=== PATIENT | female | born 1960 | race American Indian/Alaskan Native ===

== ENCOUNTER 2022-02-14 09:08 | Emergency (ER) | payer MEDICARE ==
[2022-02-14] MEDS ORDERED: KETOROLAC 30 MG/1 ML INJ IM ONE (11:29)
[2022-02-14] MEDS ORDERED: ACETAMINOPHEN 500 MG TAB PO ONE (11:29)
--- NOTE | 2022-02-14 11:30 | Emergency Department Report ---
ED General Adult HPI - General Chief complaint: Back Pain/Injury Stated complaint: LOWER BACK/LT/RT LEG PAIN Time Seen by Provider: 02/14/22 11:16 Source: patient, RN notes reviewed Mode of arrival: Ambulatory Limitations: No Limitations - History of Present Illness Initial comments: The patient was evaluated in the emergency department for symptoms described in the history of present illness. He/she was evaluated in the context of the global COVID-19 pandemic, which necessitated consideration that the patient might be at risk for infection with the virus that causes COVID-19. Institutional protocols and algorithms that pertain to the evaluation of patients at risk for COVID-19 are in a state of rapid change based on information released by regulatory bodies including the CDC and federal and state organizations. These policies and algorithms were followed during the patient's care in the emergency department. Please note that these policies, procedures and recommendations changed on a rapid basis. This is a 41-year-old female with a body mass index of 41.3, and a past medical history of hypertension, presumed arthritis, known lumbar radiculopathy and who presents to the emergency room today with a complaint of persistent left paralumbar lower back pain, which radiates down the left posterior lower extremity. The pain is somewhat intense, and causes her to limp, and therefore, she is putting extra weight on her knees, and she complains of generalized knee aches. She was recently seen at [facility] , last week for similar symptoms, reportedly prescribed a muscle relaxant, which she is taking, without additional analgesics, without significant improvement in symptoms. Denies headache, neck pain, chest pain, abdominal pain, shortness of breath, vomiting, dysuria, focal extremity weakness, bladder or bowel retention incontinence and saddle anesthesia. Pain is sharp and lancinating, radiates down the left lower extremity, increases with range of motion, ambulation, decreases with rest and position. No additional injuries or complaints. -: week(s) Location: back, left, lower extremity Radiation: extremity Severity scale (0 -10): 8 Quality: other Consistency: other Improves with: other Worsens with: other Associated Symptoms: denies other symptoms - Related Data Previous Rx's Medication Instructions Recorded Last Taken Type Acetaminophen [Acetaminophen ER 650 mg PO Q6HR PRN #30 tab 02/14/22 Unknown Rx TAB] Ibuprofen [Motrin] 600 mg PO Q8H PRN #30 tablet 02/14/22 Unknown Rx Allergies Allergy/AdvReac Type Severity Reaction Status Date / Time No Known Allergies Allergy Unverified 02/14/22 09:13 ED Review of Systems ROS: Stated complaint: LOWER BACK/LT/RT LEG PAIN Other details as noted in HPI Comment: All other systems reviewed and negative Musculoskeletal: back pain, arthralgia, myalgia Neurological: paresthesias ED Past Medical Hx - Past Medical History Previous Medical History?: Yes Additional medical history: Lupus - Surgical History Past Surgical History?: Yes Hx Appendectomy: Yes - Medications Home Medications: Home Medications Medication Instructions Recorded Confirmed Last Taken Type Acetaminophen [Acetaminophen ER 650 mg PO Q6HR PRN #30 tab 02/14/22 Unknown Rx TAB] Ibuprofen [Motrin] 600 mg PO Q8H PRN #30 tablet 02/14/22 Unknown Rx ED Physical Exam - General Limitations: No Limitations General appearance: alert, in no apparent distress, obese - Head Head exam: Present: atraumatic, normocephalic - Eye Eye exam: Present: normal appearance, EOMI. Absent: nystagmus - ENT ENT exam: Present: normal exam, normal orophraynx, mucous membranes moist, normal external ear exam - Neck Neck exam: Present: normal inspection, full ROM. Absent: tenderness, meningismus - Respiratory Respiratory exam: Present: normal lung sounds bilaterally. Absent: respiratory distress, wheezes, rales, rhonchi, stridor, decreased breath sounds - Cardiovascular Cardiovascular Exam: Present: regular rate, normal rhythm, normal heart sounds. Absent: bradycardia, tachycardia, irregular rhythm, systolic murmur, diastolic murmur, rubs, gallop - GI/Abdominal GI/Abdominal exam: Present: soft. Absent: distended, tenderness, guarding, rebound, rigid, pulsatile mass - Extremities Exam Extremities exam: Present: normal inspection (There is a positive left straight leg raise there is a positive left straight leg raise), full ROM, pedal edema, other (2+ pulses noted in the bilateral upper and lower extremities. There is no palpable cord. negative Homans sign. Muscular compartments are soft. The pelvis is stable.). Absent: calf tenderness - Back Exam Back exam: Present: normal inspection, paraspinal tenderness. Absent: tenderness, CVA tenderness (R), CVA tenderness (L), muscle spasm, vertebral tenderness - Neurological Exam Neurological exam: Present: alert, oriented X3, normal gait (Walks with a slight limp), reflexes normal, other (No facial droop. Tongue midline. Extraocular movements intact bilaterally. Facial sensation intact to light touch in V1, V2, V3 distribution bilaterally. 5 and a 5 strength in 4 extremities. Sensation intact to light touch in 4 extremities.). Absent: motor sensory deficit (Sensation is intact to light touch and pinch in the bilateral upper and lower extremities) - Psychiatric Psychiatric exam: Present: anxious - Skin Skin exam: Present: warm, dry, intact, normal color. Absent: rash ED Course Vital Signs 02/14/22 02/14/22 09:13 12:04 Temperature 98.2 F Pulse Rate 88 64 Respiratory 20 18 Rate Blood Pressure 162/102 [Left] Blood Pressure 187/104 [Right] O2 Sat by Pulse 100 99 Oximetry ED Medical Decision Making - Lab Data Vital Signs - 24 hr 02/14/22 02/14/22 09:13 12:04 Temperature 98.2 F Pulse Rate 88 64 Respiratory 20 18 Rate Blood Pressure 162/102 [Left] Blood Pressure 187/104 [Right] O2 Sat by Pulse 100 99 Oximetry - Medical Decision Making Differential diagnosis, including but not limited to: Obesity, lumbar radiculopathy, arthritis Assessment and plan: 61-year-old female with probable lumbar radiculopathy. She is ambulatory with a slight limp, but otherwise, does not have any concerning findings. Equal pulses in the upper and lower extremities, no pulsatile abdominal mass, no endorsement of chest pain. Counseled on the natural history of lumbar radiculopathy, and arthritis. Strongly recommend diet, exercise, weight loss and physical therapy. Patient reports no known kidney problems. May start Tylenol and ibuprofen. Recommend outpatient follow-up with primary care. Blood pressure is improved. Please reference [employer] clinical policy on asymptomatic hypertension/blood pressure. Patient specifically denies chest pain, abdominal pain, and upper thoracic back pain. Discharge precautions are reviewed. All questions answered. The patient endorses understanding. Critical care attestation.: If time is entered above; I have spent that time in minutes in the direct care of this critically ill patient, excluding procedure time. ED Disposition Clinical Impression: Lumbar radiculopathy, BMI greater than 40 Disposition: 01 HOME / SELF CARE / HOMELESS Is pt being admited?: No Does the pt Need Aspirin: No Condition: Good Instructions: Radicular Pain Additional Instructions: As we discussed, suspect that patient has sciatica/left-sided lumbar radiculopathy, likely exacerbated and worsened by body mass index of 41.3. Alternate ice packs and heat packs as needed for pain. Take the prescribed medications as needed and directed. Recommend aggressive exercise, weight loss as tolerated, and physical therapy. Follow-up with an outpatient primary care doctor, pain specialist, or spine physician to coordinate outpatient physical therapy. Patient symptoms will likely be much improved with aggressive weight loss. If taking ibuprofen for pain, make certain to take with food. Patient may also attempt outpatient complementary therapies, such as massage, acupuncture, or aquatic/water-based therapy. Please follow-up with an outpatient physician for lumbar radiculopathy within the next 2 weeks. Please return to the emergency room right away with new pain, worsened pain, migration of pain, projectile vomiting, change in mental status, confusion, inability tolerate liquid feeds, new, worsened or different symptoms not present on the initial emergency room evaluation Referrals: [facility] [Provider Group] - 3-5 Days [facility] [Provider Group] - 3-5 Days Forms: Work/School Release Form
[2022-02-14 12:04] VITALS: BP 162/102
== END 2022-02-14 12:25 | disposition home or self-care (01) ==
LOC: ED 09:08
DX: M54.16 Radiculopathy, lumbar region (principal); Z68.42 Body mass index [BMI] 45.0-49.9, adult; M32.9 Systemic lupus erythematosus, unspecified; Z90.89 Acquired absence of other organs
CPT/HCPCS: 96372; 99282; J1885